=== PATIENT | female | born 1955 | race Caucasian/White ===

== ENCOUNTER 2016-11-13 14:11 | Inpatient (IN) | payer OTHER ==
[~2016-11-13] VITALS: Ht 154.9 cm; Wt 90.8 kg
[~2016-11-13 14:11] MED LIST: APRESOLINE; APRISO0.375 GM PO; ASACOL HD800 MG PO; ASACOL400 MG PO; ATIVAN0.5 MG PO; AZO CRANBERRY1 EACH PO; AZO YEAST PO; AZO1 EACH MC; AZO95 MG PO; Ativan PO; BACTRIM,SEPT1 TABLET PO; BAYER BACK AND BODY; BENADRYL25 MG PO; BUDEPRION SR150 MG PO; BUPROBAN150 MG PO; CALTRATE 6001 TABLE1 PO; CELECOXIB200 MG PO; COUMADIN1 MG PO; CYCLOBENZAPRINE10 MG PO; CYMBALTA60 MG PO; Cipro PO; DILAUDID2 MG PO; DOK PLUS TABLE1 EACH PO; ETODOLAC400 M2 PO; FERROUS SULFAT325 MG PO; FLEXERIL10 MG PO; FOLIC ACID1 MG PO; Folvite PO; HYDROCHLOROTH12.5 M3 PO; KEFLEX500 MG PO; LISINOPRIL-HCT1 EAC3 PO; LISINOPRIL-HCT1 EACH PO; LODINE400 MG PO; LYRICA75 MG PO; METHOTREXATE PO; METHOTREXATE2.5 MG PO; MICATIN15 GM TP; NEXIUM40 MG PO; NORFLEX100 MG PO; NYSTOP60 GM; OXYCODONE HCL5 MG PO; OXYCODONE-APAP1 EACH PO; PERCOCET 10/1 TABLET PO; PERCOCET 5/31 TABLET PO; PREDNISONE10 M2 PO; PREDNISONE10 MG PO; PREDNISONE5 MG PO; PRINZIDE 10-121 EACH PO; RISEDRONATE PO; SEROPHENE50 MG PO; SEROQUEL12.5 MG PO; SEROQUEL50 MG PO; SEROquel PO; SIMVASTATIN10 M1 PO; SIMVASTATIN20 MG PO; STOOL SOFTENER1 EAC2 PO; TORADOL10 MG PO; TRAMADOL HCL50 MG PO; TYLENOL REGULA325 MG PO; ULTRAM50 MG PO; VALIUM5 MG PO; WELLBUTRIN SR150 MG PO; WELLBUTRIN XL300 MG PO; Wellbutrin SR PO; XARELTO10 MG PO; ZANTAC150 MG PO; ZESTORETIC,P1 TABLET PO; ZOCOR20 MG PO; ZOFRAN4 MG PO; Zestoretic,Prinzide PO; Zocor PO
[2016-11-13 15:13] LABS: HEMATOCRIT 33.9 % (36.0-46.0); MCH 31.5 PG (29.0-34.0); MCV 95.5 FL (83-99); MEAN PLAT.VOLUME 8.8 uM^3 (9.5-12.4); PLATELET COUNT 289 K/uL (156-360); RBC DIS.WIDTH-CV 16.6 % (11.8-14.6); RBC DIS.WIDTH-SD 54.1 % (39-53); RED BLOOD COUNT 3.55 M/uL (3.80-5.20); WHITE BLOOD COUNT 9.3 K/uL (4.1-10.2)
[2016-11-13] MEDS ORDERED: CYCLOBENZAPRINE10 MG PO (15:20)
[2016-11-13 15:21] LABS: CHLORIDE 102 mEq/L (99-109); POTASSIUM 3.8 mEq/L (3.7-5.4); SODIUM 138 mEq/L (136-147)
[2016-11-13 15:22] LABS: GLUCOSE 69 mg/dL (70-99)
[2016-11-13 15:24] LABS: ANION GAP 14 MEQ/L (2-14)
[2016-11-13] MEDS ORDERED: OXAYDO5 MG PO (15:24)
[2016-11-13 15:26] LABS: GFR ESTIMATE (CALCULATED) > 59 mL/min/
[2016-11-13 15:27] LABS: UREA NITROGEN (BUN) 17 mg/dL (9-23)
[2016-11-13 17:19] VITALS: BP 124/70
[2016-11-13 19:55] VITALS: BP 123/66
[2016-11-14] VITALS (7 sets, daily range): BP systolic 119–156; BP diastolic 57–94
[2016-11-14 07:17] LABS: ALKALINE PHOSPHATASE 92 IU/L (3-129); ANION GAP 15 MEQ/L (2-14); CHLORIDE 103 MEQ/L (99-109); GFR ESTIMATE (CALCULATED) > 59 mL/min/; POTASSIUM 4.3 MEQ/L (3.7-5.4); SAMPLE HEMOLYSIS CHECK 0; SAMPLE ICTERIC CHECK 0; SAMPLE LIPEMIA CHECK 0; SODIUM 140 MEQ/L (136-147); TOTAL BILIRUBIN 0.5 MG/DL (0.0-1.0); UREA NITROGEN (BUN) 14 mg/dL (9-23)
[2016-11-14 07:25] LABS: GLUCOSE 134 mg/dL (70-99)
[2016-11-14 08:34] LABS: MEAN PLAT.VOLUME 9.3 uM^3 (9.5-12.4); PLATELET COUNT 221 K/uL (156-360)
[2016-11-14 08:36] LABS: HEMATOCRIT 35.1 % (36.0-46.0); MCH 30.8 PG (29.0-34.0); MCHC 31.3 G/DL (30.0-36.0); MCV 98.3 FL (83-99); RBC DIS.WIDTH-CV 17.2 % (11.8-14.6); RBC DIS.WIDTH-SD 61.1 % (39-53); RED BLOOD COUNT 3.57 M/uL (3.80-5.20); WHITE BLOOD COUNT 7.5 K/uL (4.1-10.2)
[2016-11-14 08:37] LABS: EOSINOPHIL (%) 0.7 % (0-5); EOSINOPHIL COUNT 0.1 K/uL (0-0.3); IMMATURE GRANULOCYTE (%) 0.7 % (0.0-0.7); IMMATURE GRANULOCYTE COUNT 0.1 K/uL; LYMPHOCYTE COUNT 1.5 K/uL (1.0-2.8); MONOCYTE (%) 4.8 % (3-12); MONOCYTE COUNT 0.4 K/uL (0-0.8); NEUTROPHIL (%) 74.1 % (45-76); NEUTROPHIL COUNT 5.6 K/uL (1.8-6.4)
[2016-11-14 09:57] LABS: HEMATOLOGY COMMENT 1 SMEAR COMPATIBLE; USER ID CCL
[2016-11-15 03:10] VITALS: BP 133/80
[2016-11-15 07:19] LABS: HEMATOCRIT 31.1 % (36.0-46.0); MCH 31.4 PG (29.0-34.0); MCHC 31.8 G/DL (30.0-36.0); MCV 98.7 FL (83-99); MEAN PLAT.VOLUME 9.1 uM^3 (9.5-12.4); PLATELET COUNT 252 K/uL (156-360); RBC DIS.WIDTH-CV 17.3 % (11.8-14.6); RBC DIS.WIDTH-SD 60.8 % (39-53); RED BLOOD COUNT 3.15 M/uL (3.80-5.20); WHITE BLOOD COUNT 7.7 K/uL (4.1-10.2)
[2016-11-15 07:34] LABS: EOSINOPHIL (%) 0.8 % (0-5); EOSINOPHIL COUNT 0.1 K/uL (0-0.3); IMMATURE GRANULOCYTE COUNT 0.1 K/uL; LYMPHOCYTE COUNT 1.4 K/uL (1.0-2.8); MONOCYTE (%) 3.5 % (3-12); MONOCYTE COUNT 0.3 K/uL (0-0.8); NEUTROPHIL (%) 76.6 % (45-76); NEUTROPHIL COUNT 5.9 K/uL (1.8-6.4)
[2016-11-15 07:57] VITALS: BP 131/83
[2016-11-15 08:03] LABS: ANION GAP 9 MEQ/L (2-14); CHLORIDE 104 MEQ/L (99-109); GFR ESTIMATE (CALCULATED) > 59 mL/min/; GLUCOSE 121 mg/dL (70-99); POTASSIUM 4.5 MEQ/L (3.7-5.4); SAMPLE HEMOLYSIS CHECK 0; SAMPLE ICTERIC CHECK 0; SAMPLE LIPEMIA CHECK 0; SODIUM 139 MEQ/L (136-147); UREA NITROGEN (BUN) 11 mg/dL (9-23)
[2016-11-15 08:06] LABS: VANCOMYCIN, TROUGH 15.7 MCG/ML (10-20)
[2016-11-15 11:20] VITALS: BP 161/80
[2016-11-15 15:22] VITALS: BP 140/96
[2016-11-15 19:46] VITALS: BP 113/77
[2016-11-15 23:27] VITALS: BP 146/73
[2016-11-16 03:25] VITALS: BP 174/67
[2016-11-16 06:56] LABS: HEMATOCRIT 33.6 % (36.0-46.0); MCH 30.3 PG (29.0-34.0); MEAN PLAT.VOLUME 8.9 uM^3 (9.5-12.4); PLATELET COUNT 256 K/uL (156-360); RBC DIS.WIDTH-CV 17.2 % (11.8-14.6); RBC DIS.WIDTH-SD 60.3 % (39-53); RED BLOOD COUNT 3.43 M/uL (3.80-5.20); WHITE BLOOD COUNT 9.7 K/uL (4.1-10.2)
[2016-11-16 07:15] VITALS: BP 127/80
[2016-11-16 07:40] LABS: ANION GAP 11 MEQ/L (2-14); CHLORIDE 103 MEQ/L (99-109); GFR ESTIMATE (CALCULATED) > 59 mL/min/; GLUCOSE 127 mg/dL (70-99); POTASSIUM 4.6 MEQ/L (3.7-5.4); SAMPLE HEMOLYSIS CHECK 0; SAMPLE ICTERIC CHECK 0; SAMPLE LIPEMIA CHECK 0; SODIUM 142 MEQ/L (136-147); UREA NITROGEN (BUN) 15 mg/dL (9-23)
[2016-11-16 07:42] LABS: EOSINOPHIL (%) 0.8 % (0-5); EOSINOPHIL COUNT 0.1 K/uL (0-0.3); HEMATOLOGY COMMENT 1 SMEAR COMPATIBLE; IMMATURE GRANULOCYTE (%) 3.6 % (0.0-0.7); IMMATURE GRANULOCYTE COUNT 0.4 K/uL; LYMPHOCYTE COUNT 1.6 K/uL (1.0-2.8); MONOCYTE (%) 4.4 % (3-12); MONOCYTE COUNT 0.4 K/uL (0-0.8); NEUTROPHIL (%) 74.9 % (45-76); NEUTROPHIL COUNT 7.3 K/uL (1.8-6.4); USER ID SDF
[2016-11-16] MEDS ORDERED: CIPRO500 MG PO (09:46)
[2016-11-16] MEDS ORDERED: BACTRIM,SEPT1 TABLET PO (09:46)
== END 2016-11-16 11:28 | disposition home or self-care (01) | DRG 603 ==
LOC: EME 14:11 → 2EAST 15:16 → EDOF 15:16 → 2EAST 16:43
PROVIDERS: Emergency Medicine; Hospitalist; Internal Medicine
DX: L03.115 Cellulitis of right lower limb (principal); K50.90 Crohn's disease, unspecified, without complications; L03.116 Cellulitis of left lower limb; I10 Essential (primary) hypertension; G89.29 Other chronic pain; M54.9 Dorsalgia, unspecified; K21.9 Gastro-esophageal reflux disease without esophagitis; E78.5 Hyperlipidemia, unspecified; M06.9 Rheumatoid arthritis, unspecified; F41.9 Anxiety disorder, unspecified; B95.62 Methicillin resistant Staphylococcus aureus infection as the cause of diseases classified elsewhere; B96.5 Pseudomonas (aeruginosa) (mallei) (pseudomallei) as the cause of diseases classified elsewhere; Z79.52 Long term (current) use of systemic steroids; L40.50 Arthropathic psoriasis, unspecified; F32.9 Major depressive disorder, single episode, unspecified; G47.00 Insomnia, unspecified; Z96.651 Presence of right artificial knee joint; S81.812S Laceration without foreign body, left lower leg, sequela; S81.811S Laceration without foreign body, right lower leg, sequela; Z87.891 Personal history of nicotine dependence
CPT/HCPCS: 73590; 80048; 80053; 80202; 83605; 85025; 85027; 87040; 87070; 87075; 87076; 87077; 87147; 87186; 87205; 88305; 93970; 99281; 99285; J0690; J0692; J1644; J3370; J7050; J7512

== ENCOUNTER 2017-06-12 22:54 | Emergency (ER) | payer OTHER ==
[~2017-06-12] VITALS: Ht 152.4 cm; Wt 86.0 kg
[~2017-06-12 22:54] MED LIST changes: +CIPRO500 MG PO; +OXAYDO5 MG PO
[2017-06-13 00:03] LABS: EOSINOPHIL (%) 0.1 % (0-5); HEMATOCRIT 34.6 % (36.0-46.0); IMMATURE GRANULOCYTE (%) 0.4 % (0.0-0.7); IMMATURE GRANULOCYTE COUNT 0.1 K/uL; INSTRUMENT ABS NEUTROPHIL CT 12.7 K/uL; LYMPHOCYTE COUNT 0.8 K/uL (1.0-2.8); MCH 30.6 PG (29.0-34.0); MCHC 32.9 G/DL (30.0-36.0); MCV 92.8 FL (83-99); MEAN PLAT.VOLUME 8.8 uM^3 (9.5-12.4); MONOCYTE (%) 4.5 % (3-12); MONOCYTE COUNT 0.6 K/uL (0-0.8); NEUTROPHIL (%) 89.6 % (45-76); NEUTROPHIL COUNT 12.7 K/uL (1.8-6.4); PLATELET COUNT 331 K/uL (156-360); RBC DIS.WIDTH-CV 16.3 % (11.8-14.6); RBC DIS.WIDTH-SD 54.2 % (39-53); RED BLOOD COUNT 3.73 M/uL (3.80-5.20); WHITE BLOOD COUNT 14.1 K/uL (4.1-10.2)
[2017-06-13 00:12] LABS: CHLORIDE 99 mEq/L (99-109); POTASSIUM 3.8 mEq/L (3.7-5.4); SODIUM 135 mEq/L (136-147)
[2017-06-13 00:14] LABS: GLUCOSE 127 mg/dL (70-99)
[2017-06-13 00:15] LABS: ANION GAP 11 MEQ/L (2-14)
[2017-06-13 00:18] LABS: GFR ESTIMATE (CALCULATED) > 59 mL/min/
[2017-06-13 00:19] LABS: UREA NITROGEN (BUN) 11 mg/dL (9-23)
[2017-06-13 00:38] LABS: TROP-I INTERPRETATION NEGATIVE; TROPONIN-I < 0.01 ng/mL (0.0-0.30)
[2017-06-13] MEDS ORDERED: VALIUM2 MG PO (02:37)
[2017-06-13] MEDS ORDERED: NORCO 5/3251 TABLET PO (02:37)
[2017-06-13] MEDS ORDERED: LIDOCAINE700 MG TP (02:37)
[2017-06-13 02:54] VITALS: BP 125/81
== END 2017-06-13 02:55 | disposition home or self-care (01) ==
LOC: EME 22:54
PROVIDERS: Emergency Medicine
DX: M62.838 Other muscle spasm (principal); M54.12 Radiculopathy, cervical region; M46.92 Unspecified inflammatory spondylopathy, cervical region; Z87.891 Personal history of nicotine dependence; K58.9 Irritable bowel syndrome, unspecified; K21.9 Gastro-esophageal reflux disease without esophagitis; I10 Essential (primary) hypertension; Z98.1 Arthrodesis status; M54.2 Cervicalgia; G89.29 Other chronic pain
CPT/HCPCS: 72125; 80048; 84484; 85025; 93005; 99281; 99284; J1885; J3010